=== PATIENT | male | born 1935 | race Caucasian/White ===

== ENCOUNTER → 2016-11-15 | Outpatient (CLI) | payer OTHER | END | disposition home or self-care (01) | LOC: LAB 12:11 | DX: S82.231K Displaced oblique fracture of shaft of right tibia, subsequent encounter for closed fracture with nonunion (principal); S82.2 Fracture of shaft of tibia | CPT/HCPCS: 36415; 82306; 82310 ==

== ENCOUNTER → 2016-11-17 | Outpatient (CLI) | payer OTHER ==
[2016-11-17 12:50] LABS: Basophils # (auto) 0 uL; Basophils % (auto) 0.7 % (0.0-2.0); Eosinophils # (auto) 0.1 uL; Hematocrit 33.5 % (41.0-53.0); Hemoglobin 10.8 g/dL (13.5-17.5); Lymphocytes # (auto) 1.1 uL; Lymphocytes % (auto) 18.1 % (10.0-50.0); Mean Corpuscular Hemoglobin 27.8 pg (28.0-32.0); Mean Corpuscular Hgb Conc. 32.3 g/dL (32.0-36.0); Mean Corpuscular Volume 86.2 fL (80.0-100.0); Mean Platelet Volume 9.3 fL (7.4-10.4); Monocytes # (auto) 0.8 uL; Monocytes % (auto) 12.9 % (0.0-12.0); Neutrophils # (auto) 4.2 uL; Neutrophils % (auto) 66.3 % (37.0-80.0); Platelet Count (auto) 264 10^3/uL (140-450); Red Cell Distribution Width 16.3 % (11.6-16.0); White Blood Cell 6.3 10^3/uL (4.4-10.8)
[2016-11-17 13:05] LABS: INR 0.94 (0.9-1.15); Partial Thromboplastin Time 33.1 sec (22.64-33.71); Prothrombin Time 10.1 sec (9.37-12.3)
[2016-11-17 13:13] LABS: Albumin 3.7 g/dL (3.4-5.0); BUN/Creatinine Ratio 13.9; Bilirubin, Total 0.3 mg/dL (0.2-1.0); Calcium 9.3 mg/dL (8.5-10.1); Potassium 4.7 mmol/L (3.5-5.1)
== END | disposition home or self-care (01) ==
LOC: LAB 12:22
DX: S81.801A Unspecified open wound, right lower leg, initial encounter (principal); S82.2 Fracture of shaft of tibia
CPT/HCPCS: 36415; 80053; 85025; 85610; 85730

== ENCOUNTER → 2017-01-30 | Outpatient (CLI) | payer OTHER ==
[2017-01-30 08:21] LABS: Hematocrit 34.7 % (41.0-53.0); Hemoglobin 11.4 g/dL (13.5-17.5); Mean Corpuscular Hemoglobin 27.3 pg (28.0-32.0); Mean Corpuscular Volume 82.6 fL (80.0-100.0); Mean Platelet Volume 8.8 fL (7.4-10.4); Platelet Count (auto) 351 10^3/uL (140-450); Red Cell Distribution Width 15.1 % (11.6-16.0); SUSPECT VIEW TRANSMISSION; White Blood Cell 6.4 10^3/uL (4.4-10.8)
[2017-01-30 08:29] LABS: Urine Bilirubin Negative (Negative); Urine Blood TRACE /uL (Negative); Urine Color Yellow (Yellow); Urine Glucose Normal (Normal); Urine Ketone Negative (Negative); Urine Nitrite Negative (Negative); Urine RBC <1 /hpf (0 - 3); Urine Squamous Epithelial Cell FEW /hpf (<5); Urine Urobilinogen Normal (Negative); Urine pH 6.5 (5.0-8.0)
[2017-01-30 08:59] LABS: Metamyelocytes % 0; Myelocytes % 0; Promyelocytes % 0; Reactive Lymphocytes 0
[2017-01-30 09:02] LABS: BUN/Creatinine Ratio 15.2; Calcium 9.3 mg/dL (8.5-10.1); Potassium 3.6 mmol/L (3.5-5.1)
[2017-01-30 11:36] LABS: Platelet Estimate Adequate
[2017-01-30 11:38] LABS: Ovalocytes FEW
[2017-01-30 11:39] LABS: Stomatocytes Few
== END | disposition home or self-care (01) ==
LOC: LAB 07:55
PROVIDERS: ATTEND Internal Medicine
DX: Z00.00 Encounter for general adult medical examination without abnormal findings (principal); E78.5 Hyperlipidemia, unspecified; I10 Essential (primary) hypertension
CPT/HCPCS: 36415; 80048; 80061; 81001; 84153; 85007; 85027

== ENCOUNTER → 2017-12-05 | Outpatient (CLI) | payer OTHER ==
[2017-12-05 12:39] LABS: Basophils # (auto) 0.1 uL; Basophils % (auto) 1.4 % (0.0-2.0); Eosinophils # (auto) 0.1 uL; Eosinophils % (auto) 1.7 % (0.0-7.0); Hematocrit 40.8 % (41.0-53.0); Hemoglobin 13.3 g/dL (13.5-17.5); Lymphocytes # (auto) 0.9 uL; Lymphocytes % (auto) 18.1 % (10.0-50.0); Mean Corpuscular Hemoglobin 28.5 pg (28.0-32.0); Mean Corpuscular Hgb Conc. 32.5 g/dL (32.0-36.0); Mean Corpuscular Volume 87.8 fL (80.0-100.0); Monocytes # (auto) 0.6 uL; Monocytes % (auto) 12.1 % (0.0-12.0); Neutrophils # (auto) 3.3 uL; Neutrophils % (auto) 66.7 % (37.0-80.0); Platelet Count (auto) 188 10^3/uL (140-450); Red Blood Cells 4.65 10^6/uL (4.5-5.90); Red Cell Distribution Width 19.3 % (11.8-14.3); White Blood Cell 4.9 10^3/uL (4.4-10.8)
[2017-12-05 12:44] LABS: Urine Blood Negative /uL (Negative); Urine Specific Gravity 1.012 (1.001-1.035)
[2017-12-05 13:29] LABS: Albumin 3.8 g/dL (3.4-5.0); BUN/Creatinine Ratio 15.5; Bilirubin, Total 0.4 mg/dL (0.2-1.0); Calcium 9.2 mg/dL (8.5-10.1); Potassium 4.3 mmol/L (3.5-5.1); Total Protein 7.8 g/dL (6.4-8.2)
== END | disposition home or self-care (01) ==
LOC: LAB 12:13
PROVIDERS: ATTEND Physician Assistant
DX: Z01.812 Encounter for preprocedural laboratory examination (principal); I10 Essential (primary) hypertension; E78.5 Hyperlipidemia, unspecified
CPT/HCPCS: 36415; 80053; 81003; 85025

== ENCOUNTER 2020-07-22 02:43 | Inpatient (IN) | payer OTHER ==
[~2020-07-22] VITALS: Ht 177.8 cm; Wt 67.2 kg
[2020-07-22] MEDS ORDERED: MORPHINE SULFATE 4 MG/ML SYR/VIAL IV ONE (03:30)
[2020-07-22] MEDS ORDERED: ONDANSETRON HCL 4 MG/2 ML VIAL IV ONE (03:30)
[2020-07-22 04:19] LABS: Basophils # (auto) 0.1 10 ^3/uL (0-0.2); Basophils % (auto) 1.4 % (0.0-2.0); Eosinophils # (auto) 0.2 10 ^3/uL (0-0.8); Eosinophils % (auto) 4.1 % (0.0-7.0); Hematocrit 40.8 % (41.0-53.0); Hemoglobin 13.4 g/dL (13.5-17.5); Lymphocytes # (auto) 0.8 10 ^3/uL (0.4-5.4); Lymphocytes % (auto) 18.7 % (10.0-50.0); Mean Corpuscular Hemoglobin 31.1 pg (28.0-32.0); Mean Corpuscular Hgb Conc. 32.7 g/dL (32.0-36.0); Mean Corpuscular Volume 94.9 fL (80.0-100.0); Monocytes # (auto) 0.7 10 ^3/uL (0-1.3); Monocytes % (auto) 15.9 % (0.0-12.0); Neutrophils # (auto) 2.7 10 ^3/uL (1.6-8.6); Neutrophils % (auto) 59.9 % (37.0-80.0); Platelet Count (auto) 172 10^3/uL (140-450); Red Cell Distribution Width 13.8 % (11.8-14.3); White Blood Cell 4.5 10^3/uL (4.4-10.8)
[2020-07-22 04:36] LABS: Albumin 3.6 g/dL (3.4-5.0); Potassium 4.1 mmol/L (3.5-5.1)
[2020-07-22 04:44] LABS: BUN/Creatinine Ratio 24.2; Bilirubin, Total 0.2 mg/dL (0.2-1.0)
[2020-07-22] MEDS ORDERED: MORPHINE SULFATE 4 MG/ML SYR/VIAL IV PRN ×2 (07:00→14:45)
[2020-07-22] MEDS ORDERED: ONDANSETRON HCL 4 MG/2 ML VIAL IV PRN (07:00)
[2020-07-22 08:04] LABS: INR 0.95 (0.9-1.15); Partial Thromboplastin Time 29.6 sec (23.0-31.2)
[2020-07-22 09:00] VITALS: BP 142/76
[2020-07-22] MEDS ORDERED: FINA5TAB4 PO (09:01)
[2020-07-22] MEDS ORDERED: LIDOCAINE W/ EPINEPHRINE 1% 20ML VIAL ONE (10:34)
[2020-07-22] MEDS ORDERED: BUPIVACAINE 0.25% INJ 50ML VIAL ONE (10:34)
[2020-07-22] MEDS: SODIUM CHLORIDE 0.9% 1,000 ML IV SCH ×2 (10:38→20:20)
[2020-07-22] MEDS: PANTOPRAZOLE 40 MG/10 ML VIAL INJ IV SCH (10:38)
[2020-07-22] MEDS ORDERED: MORPHINE SULF(PF) 0.5MG/ML 10ML VIAL ONE (12:19)
[2020-07-22] MEDS ORDERED: ONDANSETRON HCL 4 MG/2 ML VIAL ONE (12:19)
[2020-07-22] MEDS ORDERED: SODIUM CHLORIDE LOCK 10 ML ONE (12:19)
[2020-07-22] MEDS ORDERED: fentaNYL CITRATE 100 MCG/2 ML VL ONE (12:19)
[2020-07-22] MEDS ORDERED: MIDAZOLAM HCL 1MG/1ML-2 ML VIAL ONE (12:19)
[2020-07-22] MEDS ORDERED: EPINEPHrine HCL 1 MG/1 ML AMP ONE (12:20)
[2020-07-22] MEDS ORDERED: PROPOFOL 10 MG/ML 20 ML IV ONE (12:20)
[2020-07-22] MEDS ORDERED: BUPIVACAINE/DEXTROSE MPF 0.75% 2 ML AMP IT ONE (12:20)
[2020-07-22] MEDS ORDERED: CEFTRIAXONE SODIUM 2 GM in D5W 5% 50 ML IV ONE (12:30)
[2020-07-22] MEDS ORDERED: TETRACAINE 1% INJ 2 ML VIAL IJ ONE (12:39)
--- NOTE | 2020-07-22 12:39 | NUR ---
Nasogastric tube placed at 62. [id number] confirmed by both osculation and x-ray
[2020-07-22] MEDS ORDERED: ceFAZolin 1GM/50ML 50 ML IV ONE (12:59)
[2020-07-22 13:00] VITALS: BP 138/81
[2020-07-22] MEDS: metroNIDAZOLE 500MG/100ML 100 ML IV SCH ×2 (14:00→23:23)
[2020-07-22] MEDS ORDERED: MEPERIDINE HCL (25 MG/ML) 1ML VIAL ONE (14:37)
[2020-07-22] MEDS ORDERED: METOCLOPRAMIDE HCL 5MG/ml INJ 2ml VIAL IV PRN (14:45)
[2020-07-22] MEDS ORDERED: HYDROmorphone HCL 2 MG/ML VL IV PRN (14:45)
[2020-07-22] MEDS ORDERED: MEPERIDINE HCL (25 MG/ML) 1ML VIAL IV ONE (14:45)
[2020-07-22 17:00] VITALS: BP 119/59
--- NOTE | 2020-07-22 19:25 | NUR ---
patient self discontinued gi tube
[2020-07-22 22:00] VITALS: BP 159/73
--- NOTE | 2020-07-23 03:00 | NUR ---
PT'S LINEN CHANGED;PT REPOSITIONED AND PULLED UP WITH NEW GOWN. DENIES PAIN. CALL LIGHT IN REACH.
[2020-07-23 05:00] VITALS: BP 146/72
[2020-07-23 06:19] LABS: Basophils # (auto) 0 10 ^3/uL (0-0.2); Basophils % (auto) 0.4 % (0.0-2.0); Eosinophils # (auto) 0 10 ^3/uL (0-0.8); Eosinophils % (auto) 0.9 % (0.0-7.0); Hematocrit 36.8 % (41.0-53.0); Lymphocytes # (auto) 0.5 10 ^3/uL (0.4-5.4); Lymphocytes % (auto) 9.4 % (10.0-50.0); Mean Corpuscular Hemoglobin 30.8 pg (28.0-32.0); Mean Corpuscular Hgb Conc. 32.7 g/dL (32.0-36.0); Mean Corpuscular Volume 94.3 fL (80.0-100.0); Monocytes # (auto) 0.8 10 ^3/uL (0-1.3); Monocytes % (auto) 14.8 % (0.0-12.0); Neutrophils # (auto) 4.1 10 ^3/uL (1.6-8.6); Neutrophils % (auto) 74.5 % (37.0-80.0); Platelet Count (auto) 151 10^3/uL (140-450); Red Cell Distribution Width 13.9 % (11.8-14.3); White Blood Cell 5.5 10^3/uL (4.4-10.8)
[2020-07-23] MEDS: metroNIDAZOLE 500MG/100ML 100 ML IV SCH ×3 (06:25→21:36)
[2020-07-23 06:34] LABS: BUN/Creatinine Ratio 15.6; Calcium 8.3 mg/dL (8.5-10.1); Potassium 4.6 mmol/L (3.5-5.1)
[2020-07-23 08:00] VITALS: BP 148/68
[2020-07-23 09:00] VITALS: BP 148/68
[2020-07-23] MEDS: cefTRIAXone 1GM/50ML D5W 50 ML IV SCH (09:08)
[2020-07-23] MEDS: PANTOPRAZOLE 40 MG/10 ML VIAL INJ IV SCH (09:08)
[2020-07-23] MEDS: SODIUM CHLORIDE 0.9% 1,000 ML IV SCH ×2 (09:11→23:00)
[2020-07-23 13:00] VITALS: BP 142/72
[2020-07-23 16:41] VITALS: BP 135/63
--- NOTE | 2020-07-23 19:35 | NUR ---
Opening Shift Note Assumed care of patient, awake and alert. No S/S of distress/SOB. Instructed on POC and to call for assist PRN, Patient verbalized understanding and in agreement. Fall and safety precautions in place. Call light within reach and able to use. Will continue to monitor for changes Q1hr and PRN.
[2020-07-23 22:00] VITALS: BP 141/81
[2020-07-24 05:00] VITALS: BP 154/85
[2020-07-24] MEDS: metroNIDAZOLE 500MG/100ML 100 ML IV SCH ×2 (05:04→13:06)
[2020-07-24 08:00] VITALS: BP 139/74
[2020-07-24] MEDS: cefTRIAXone 1GM/50ML D5W 50 ML IV SCH (08:44)
[2020-07-24] MEDS: PANTOPRAZOLE 40 MG/10 ML VIAL INJ IV SCH (08:44)
[2020-07-24 09:00] VITALS: BP 139/74
--- NOTE | 2020-07-24 11:41 | NUR ---
DISCONTINUED GOMEZ CATHETER
[2020-07-24] MEDS: SODIUM CHLORIDE 0.9% 1,000 ML IV SCH (12:20)
--- NOTE | 2020-07-24 13:26 | NUR ---
PATIENT SUCCESSFULLY VOIDED
--- NOTE | 2020-07-24 14:40 | NUR ---
PATIENT DISCHARGING HOME WITH FAMILY. ALL IV ACCESS DISCONTINUED. PATIENT NON-TELEMETRY. ALL DISCHARGE INSTRUCTIONS GIVEN. ALL DISCHARGE PAPERWORK SIGNED.
--- NOTE | 2020-07-24 15:30 | NUR ---
PATIENT DISCHARGED HOME
--- NOTE | 2020-07-24 17:52 | NUR ---
Patient discharge prior to assessment.
== END 2020-07-24 15:30 | disposition home or self-care (01) | DRG 352 ==
LOC: ER 02:44 → OVERFLOW 02:45 → WEST WING 08:38
PROVIDERS: ADMIT Nurse Practitioner; ATTEND Family Medicine
PROC: 0YQ60ZZ Repair Left Inguinal Region, Open Approach (ICD-10-PCS; principal; 2020-07-22 13:05)
DX: K40.30 Unilateral inguinal hernia, with obstruction, without gangrene, not specified as recurrent (principal); K57.30 Diverticulosis of large intestine without perforation or abscess without bleeding; N40.0 Benign prostatic hyperplasia without lower urinary tract symptoms; Z20.828 Contact with and (suspected) exposure to other viral communicable diseases; Z82.49 Family history of ischemic heart disease and other diseases of the circulatory system; Z79.899 Other long term (current) drug therapy
CPT/HCPCS: 36415; 36600; 71045; 74176; 80048; 80053; 82805; 85025; 85610; 85730; 87426; C9113; G0378; J0171; J0690; J0696; J2250; J2405; J2704; J3490; J7060

== ENCOUNTER 2021-02-05 11:33 | Emergency (ER) | payer OTHER ==
[~2021-02-05] VITALS: Ht 177.8 cm; Wt 72.6 kg
[~2021-02-05 11:33] MED LIST: FINA5TAB4 PO
[2021-02-05 11:34] VITALS: BP 141/70
[2021-02-05] MEDS ORDERED: LIDOCAINE 1% HCL (LOCAL ANESTH.) INJ 20ML MDV IJ ONE (13:00)
== END 2021-02-05 13:58 | disposition home or self-care (01) ==
LOC: ER 11:33
DX: S01.111A Laceration without foreign body of right eyelid and periocular area, initial encounter (principal); S50.811A Abrasion of right forearm, initial encounter; R94.31 Abnormal electrocardiogram [ECG] [EKG]; W18.09XA Striking against other object with subsequent fall, initial encounter; Y93.89 Activity, other specified; Y92.89 Other specified places as the place of occurrence of the external cause; Y99.8 Other external cause status
CPT/HCPCS: 12013; 93005

== ENCOUNTER → 2021-05-29 | Outpatient (CLI) | payer OTHER ==
[2021-05-29 10:39] LABS: Basophils # (auto) 0 10 ^3/uL (0-0.2); Basophils % (auto) 0.9 % (0.0-2.0); Eosinophils # (auto) 0.1 10 ^3/uL (0-0.8); Eosinophils % (auto) 1.7 % (0.0-7.0); Hematocrit 36.5 % (41.0-53.0); Hemoglobin 12.3 g/dL (13.5-17.5); Lymphocytes # (auto) 0.8 10 ^3/uL (0.4-5.4); Lymphocytes % (auto) 14.6 % (10.0-50.0); Mean Corpuscular Hgb Conc. 33.7 g/dL (32.0-36.0); Monocytes # (auto) 0.8 10 ^3/uL (0-1.3); Monocytes % (auto) 15.4 % (0.0-12.0); Neutrophils # (auto) 3.5 10 ^3/uL (1.6-8.6); Neutrophils % (auto) 67.4 % (37.0-80.0); Nucleated Red Blood Cells % 0.1 %; Red Blood Cells 3.97 10^6/uL (4.5-5.90); Red Cell Distribution Width 14.2 % (11.8-14.3); White Blood Cell 5.2 10^3/uL (4.4-10.8)
[2021-05-29 11:28] LABS: Urine Blood 1+ /uL (Negative); Urine Specific Gravity 1.017 (1.001-1.035)
[2021-05-29 11:47] LABS: Potassium 3.7 mmol/L (3.5-5.1)
[2021-05-29 11:54] LABS: Albumin 3.1 g/dL (3.4-5.0); BUN/Creatinine Ratio 16.8; Bilirubin, Total 0.4 mg/dL (0.2-1.0); Calcium 9.2 mg/dL (8.5-10.1); Total Protein 7.7 g/dL (6.4-8.2)
== END | disposition home or self-care (01) ==
LOC: LAB 08:43
PROVIDERS: ATTEND Nurse Practitioner Family
DX: Z01.818 Encounter for other preprocedural examination (principal); J44.9 Chronic obstructive pulmonary disease, unspecified; H26.9 Unspecified cataract
CPT/HCPCS: 36415; 80053; 81003; 85025

== ENCOUNTER → 2021-09-02 | Outpatient (CLI) | payer OTHER ==
[2021-09-02 13:42] LABS: Basophils # (auto) 0.1 10 ^3/uL (0-0.2); Eosinophils # (auto) 0 10 ^3/uL (0-0.8); Eosinophils % (auto) 0.6 % (0.0-7.0); Hemoglobin 10.9 g/dL (13.5-17.5); Nucleated Red Blood Cells % 0.1 %
[2021-09-02 13:43] LABS: Basophils % (auto) 1.9 % (0.0-2.0); Hematocrit 33.8 % (41.0-53.0); Lymphocytes # (auto) 0.6 10 ^3/uL (0.4-5.4); Lymphocytes % (auto) 10.8 % (10.0-50.0); Mean Corpuscular Hemoglobin 27.2 pg (28.0-32.0); Mean Corpuscular Hgb Conc. 32.3 g/dL (32.0-36.0); Mean Corpuscular Volume 84.2 fL (80.0-100.0); Monocytes # (auto) 0.7 10 ^3/uL (0-1.3); Monocytes % (auto) 11.6 % (0.0-12.0); Neutrophils # (auto) 4.3 10 ^3/uL (1.6-8.6); Neutrophils % (auto) 75.1 % (37.0-80.0); Red Blood Cells 4.01 10^6/uL (4.5-5.90); Red Cell Distribution Width 15.4 % (11.8-14.3); White Blood Cell 5.7 10^3/uL (4.4-10.8)
[2021-09-02 13:56] LABS: INR 1.02 (0.9-1.15)
[2021-09-02 15:22] LABS: Alanine Aminotransferase 11 U/L (16-61); Alkaline Phosphatase 56 U/L (45-117); Anion Gap 8 (5-15); Aspartate Aminotransferase 15 U/L (15-37); BUN/Creatinine Ratio 20.9; Bilirubin, Total 0.3 mg/dL (0.2-1.0); Blood Urea Nitrogen 31 mg/dL (7-18); Calcium 8.8 mg/dL (8.5-10.1); Carbon Dioxide 28 mmol/L (21-32); Chloride 102 mmol/L (98-107); GFR African American 58 mL/min; GFR Non-African American 48 mL/min; Glucose 107 mg/dL (74-106); Potassium 4.5 mmol/L (3.5-5.1); Sodium 138 mmol/L (136-145); Total Protein 7.3 g/dL (6.4-8.2)
[2021-09-02 15:23] LABS: Albumin 2.9 g/dL (3.4-5.0)
== END | disposition home or self-care (01) ==
LOC: LAB 13:25
PROVIDERS: ATTEND Internal Medicine
DX: C34.90 Malignant neoplasm of unspecified part of unspecified bronchus or lung (principal); R79.89 Other specified abnormal findings of blood chemistry; J44.9 Chronic obstructive pulmonary disease, unspecified
CPT/HCPCS: 36415; 80053; 83615; 85025; 85610